=== PATIENT | female | born 1990 | race American Indian/Alaskan Native ===

== ENCOUNTER 2017-03-21 23:07 | Outpatient (CLI) | payer SELFPAY ==
[2017-03-21 23:27] VITALS: BP 109/73
[2017-03-21] MEDS ORDERED: LACTATED RINGERS 1,000 ML IV ONE (23:41)
== END 2017-03-22 00:42 | disposition home or self-care (01) ==
LOC: TRG 23:07
PROVIDERS: ATTEND Obstetrics & Gynecology
DX: O47.02 False labor before 37 completed weeks of gestation, second trimester (principal); Z3A.20 20 weeks gestation of pregnancy
CPT/HCPCS: 96360; J7120